=== PATIENT | female | born 1995 | race Caucasian/White ===

== ENCOUNTER 2022-03-11 22:18 | Emergency (ER) | payer SELFPAY ==
[~2022-03-11] VITALS: Ht 154.9 cm; Wt 63.3 kg
[2022-03-11 22:28] VITALS: BP 109/64
[2022-03-11] MEDS ORDERED: LIDOCAINE HCL/PF 1% 10 MG/ML 5ML VIAL INFIL ONE (23:30)
[2022-03-11] MEDS ORDERED: BACITRACIN ZINC OINT UDPKT TOP ONE (23:30)
[2022-03-11] MEDS ORDERED: HYDROCODONE/ACETAMINOPHEN 5/325MG TABLET PO ONE (23:45)
[2022-03-12] MEDS ORDERED: CEFI400C MT (00:24)
[2022-03-12] MEDS ORDERED: IBUP-2029 MT (00:24)
[2022-03-12] MEDS ORDERED: CLIN-194 MT (00:24)
== END 2022-03-12 00:37 | disposition home or self-care (01) ==
LOC: ER 22:18
DX: N75.1 Abscess of Bartholin's gland (principal); Z98.890 Other specified postprocedural states
CPT/HCPCS: 81025; 99283; J3490